=== PATIENT | male | born 1990 | race African-American/Black ===

== ENCOUNTER 2022-01-10 16:06 | Emergency (ER) | payer MEDICAID ==
[~2022-01-10] VITALS: Ht 182.9 cm; Wt 100.0 kg
[2022-01-10] MEDS ORDERED: KETOROLAC 60MG/2ML VIAL IM ONE (18:15)
[2022-01-10] MEDS ORDERED: TRAM50TA3 MT (18:28)
[2022-01-10] MEDS ORDERED: IBUP-2030 MT (18:28)
[2022-01-10] MEDS ORDERED: CHLO473M2 MT (18:28)
[2022-01-10] MEDS ORDERED: AMOX-494 MT (18:28)
[2022-01-10 18:45] VITALS: BP 127/85
== END 2022-01-10 18:46 | disposition home or self-care (01) ==
LOC: ER 16:06
DX: K08.89 Other specified disorders of teeth and supporting structures (principal); K04.7 Periapical abscess without sinus
CPT/HCPCS: 96372; 99283; J1885

== ENCOUNTER 2022-01-22 01:16 | Emergency (ER) | payer MEDICAID ==
[~2022-01-22] VITALS: Ht 185.4 cm; Wt 100.0 kg
[~2022-01-22 01:16] MED LIST: AMOX-494 MT; CHLO473M2 MT; IBUP-2030 MT; TRAM50TA3 MT
[2022-01-22] MEDS ORDERED: KETOROLAC 15MG/ML VIAL IM ONE (01:30)
[2022-01-22 01:39] VITALS: BP 134/94
== END 2022-01-22 01:50 | disposition home or self-care (01) ==
LOC: ER 01:16
DX: K08.89 Other specified disorders of teeth and supporting structures (principal)
CPT/HCPCS: 96372; 99283; J1885